=== PATIENT | female | born 1990 | race Caucasian/White ===

== ENCOUNTER 2017-12-20 15:16 | Emergency (ER) | payer SELFPAY ==
[~2017-12-20] VITALS: Ht 170.2 cm; Wt 53.1 kg
[2017-12-20 15:25] VITALS: BP 128/78
--- NOTE | 2017-12-20 15:27 | NUR ---
PT AMBULATED TO BED 11
--- NOTE | 2017-12-20 15:30 | NUR ---
PT. CAME INTO THE ED DUE TO FEELING WEAK X 1 WEEK AND FEELING ANXIOUS. PT. DENIES ANY CHEST PAIN , DENIES N/V/D. PT STATES " EARLIER I WAS A LITTLE SHORT OF BREATHE BUT IM BETTER NOW BUT I JUST FEEL WEAK". 6/10 PAIN IN LOWER ABD NON RADIAITING AND SHARP. PT STATES " I HAVE OVARIAN CYSTS AND I THINK THE PAIN STARTED AND I STARTED GETTING ANXIOUS TOO BECAUSE OF IT". O2: 98% VIA RA. ER MD NOTIFIED. SAFETY PRECAUTIONS IMPLEMENTED. SAFETY PRECAUTIONS IMPLEMENTED. VSS. WILL CONTINUE TO MONITOR.
[2017-12-20] MEDS ORDERED: LORazepam 1 MG TAB PO ONE (16:05)
--- NOTE | 2017-12-20 16:30 | NUR ---
PT. RESTING COMFORTABLY IN BED, RR EVEN AND UNLABORED . VSS.
[2017-12-20 17:10] VITALS: BP 100/60
--- NOTE | 2017-12-20 17:10 | NUR ---
Patient discharged with v/s stable. Written and verbal after care instructions given and explained. Patient alert, oriented and verbalized understanding of instructions. Ambulatory with steady gait. All questions addressed prior to discharge. ID band removed. Patient advised to follow up with PMD. Rx of ATIVAN 0.5MG given. Patient educated on indication of medication including possible reaction and side effects. Opportunity to ask questions provided and answered.
== END 2017-12-20 17:10 | disposition home or self-care (01) ==
LOC: MED 15:16
DX: F41.9 Anxiety disorder, unspecified (principal); M25.511 Pain in right shoulder; M25.512 Pain in left shoulder
CPT/HCPCS: 81002; 81025; 99284